=== PATIENT | female | born 1940 | race Caucasian/White ===

== ENCOUNTER 2018-05-19 13:53 | Emergency (ER) | payer MEDICARE, BC ==
[~2018-05-19] VITALS: Ht 157.5 cm; Wt 82.8 kg
[~2018-05-19 13:53] MED LIST: BUSP5TAB3 PO; CHOL200035 PO; LEVO50TA67 PO; TRAZ-91 PO
[2018-05-19] MEDS ORDERED: ASPI-1265 PO (16:29)
[2018-05-19 17:04] LABS: BASOPHILS # (AUTO) 0.1 X10'3 (0-0.2); BASOPHILS % (AUTO) 0.6 % (0-1); EOSINOPHILS # (AUTO) 0.1 X10'3 (0-0.9); EOSINOPHILS % (AUTO) 1.7 % (0-6); HEMATOCRIT 43.2 % (35.0-45.0); HEMOGLOBIN 14.4 g/dl (12.0-16.0); LYMPHOCYTES # (AUTO) 2.4 X10'3 (1.1-4.8); LYMPHOCYTES % (AUTO) 29.2 % (21-51); MEAN CORPUSCULAR HEMOGLOBIN 34.4 PG (27.0-31.0); MEAN CORPUSCULAR HGB CONC 33.2 % (33.0-36.5); MEAN CORPUSCULAR VOLUME 103.5 FL (78-98); MEAN PLATELET VOLUME 7.5 FL (7.4-10.4); MONOCYTES # (AUTO) 0.7 X10'3 (0-0.9); MONOCYTES % (AUTO) 8.1 % (2-12); NEUTROPHILS % (AUTO) 60.4 % (42-75); PLATELET COUNT 211 X10'3 (140-440); RED BLOOD COUNT 4.17 X10'6 (4.20-5.60); RED CELL DISTRIBUTION WIDTH 12.1 % (11.5-14.5); WHITE BLOOD COUNT 8.3 X10'3 (4.5-11.0)
[2018-05-19 17:26] LABS: ALANINE AMINOTRANSFERASE 54 U/L (12-78); ALBUMIN 3.4 G/DL (3.4-5.0); ALBUMIN/GLOBULIN RATIO 0.8 (1.1-1.5); ALKALINE PHOSPHATASE 133 IU/L (46-116); ANION GAP 8 (8-16); ASPARTATE AMINO TRANSFERASE 64 U/L (10-37); BILIRUBIN,TOTAL 0.7 MG/DL (0.1-1.0); BLOOD UREA NITROGEN 22 MG/DL (7-18); CALCIUM 9.1 MG/DL (8.5-10.1); CHLORIDE 105 MMOL/L (99-107); GLUCOSE 98 MG/DL (70-104); LIPASE 233 U/L (73-393); POTASSIUM 3.9 MMOL/L (3.5-5.1); SODIUM 140 MMOL/L (135-145); TOTAL CARBON DIOXIDE 26.9 MMOL/L (24-32); TOTAL PROTEIN 7.8 G/DL (6.4-8.2); eGFR 48 ML/MIN
[2018-05-19] MEDS ORDERED: normal saline 1000ML IV soln IVB ONE (17:50)
[2018-05-19 18:24] VITALS: BP 185/100
[2018-05-19] MEDS ORDERED: HYDROcodone/acetaminophen 5mg/325mg tablet PO ONE (18:45)
[2018-05-19 19:17] LABS: CLARITY,URINE CLEAR (Clear); COLOR,URINE YELLOW (Yellow); GLUCOSE, URINE NEGATIVE (Neg); KETONES,URINE NEGATIVE (Neg); LEUKOCYTE ESTERASE ,URINE NEGATIVE (Neg); NITRITES, URINE NEGATIVE (Neg); OCCULT BLOOD,URINE NEGATIVE (Neg); PROTEIN,URINE NEGATIVE (Neg); UROBILINOGEN,URINE 0.2 E.U/dL (0.2-1.0)
[2018-05-19] MEDS ORDERED: HYDR-4383 PO (19:17)
[2018-05-19 19:25] LABS: UA COLLECTION TYPE CLN CATCH MIDSTREAM
== END 2018-05-19 19:46 | disposition home or self-care (01) ==
LOC: ER 13:54
DX: S30.1XXA Contusion of abdominal wall, initial encounter (principal); R16.2 Hepatomegaly with splenomegaly, not elsewhere classified; K76.6 Portal hypertension; Z98.890 Other specified postprocedural states; Z79.82 Long term (current) use of aspirin; Z79.899 Other long term (current) drug therapy; W18.49XA Other slipping, tripping and stumbling without falling, initial encounter; Y93.89 Activity, other specified; Y92.89 Other specified places as the place of occurrence of the external cause; Y99.9 Unspecified external cause status
CPT/HCPCS: 36415; 74177; 80053; 81003; 83690; 85025; 99284; J7030; A9579

== ENCOUNTER 2018-06-09 07:12 | Emergency (ER) | payer MEDICARE, BC ==
[~2018-06-09] VITALS: Ht 157.5 cm; Wt 81.8 kg
[~2018-06-09 07:12] MED LIST changes: +ASPI-1265 PO; -BUSP5TAB3 PO; -CHOL200035 PO; +HYDR-4383 PO; -TRAZ-91 PO
--- NOTE | 2018-06-09 07:42 | NUR ---
awaiting to be seen by Dr. davila,daughter at bedside.call light within reach.
--- NOTE | 2018-06-09 08:37 | NUR ---
patient to xray.
--- NOTE | 2018-06-09 08:55 | NUR ---
debra steen at bedside.
--- NOTE | 2018-06-09 09:06 | NUR ---
AWAITING FOR CREW CALLER TO TAKE PT TO CT.
[2018-06-09] MEDS ORDERED: ONDA4TAB6 PO (10:23)
[2018-06-09] MEDS ORDERED: CYCL-1 PO (10:23)
[2018-06-09] MEDS ORDERED: cyclobenzaprine 10mg tablet PO ONE (10:35)
[2018-06-09 10:57] VITALS: BP 153/73
== END 2018-06-09 10:59 | disposition home or self-care (01) ==
LOC: ER 07:12
DX: M54.5 Low back pain (principal); G89.29 Other chronic pain; Z79.82 Long term (current) use of aspirin; Z79.899 Other long term (current) drug therapy; Z98.890 Other specified postprocedural states; W06.XXXA Fall from bed, initial encounter; Y93.89 Activity, other specified; Y92.89 Other specified places as the place of occurrence of the external cause; Y99.8 Other external cause status
CPT/HCPCS: 71046; 72128; 99284